=== PATIENT | female | born 1985 | race African-American/Black ===

== ENCOUNTER 2017-02-19 11:34 | Emergency (ER) | payer SELFPAY ==
--- NOTE | 2017-02-19 12:41 | RAD ---
EXAM: LEFT FOOT 3 VIEWS: History Pain and swelling x 1 week. The patient stepped on a rock while walking a week ago. COMPARISON: None. FINDINGS: There is soft tissue swelling. Joint spaces are preserved. Lisfranc alignment is maintained. No f racture. No radiopaque foreign body. IMPRESSION: 1. No radiopaque foreign body. No fracture. 2. Nonspecific soft tissue swelling. POS: [facility]
[2017-02-19 12:59] LABS: #Basophils 0.1 thou/uL (0.0-0.2); #Eosinphils 0.2 thou/uL (0.0-0.7); #Lymphocytes 2.7 thou/uL (1.20-3.40); #Monocytes 0.4 thou/uL (0.11-0.59); %Basophils 1.2 % (0.0-1.0); %Eosinophils 3.6 % (0.0-10.0); %Lymphocytes 42.1 % (21.0-51.0); %Monocytes 6.5 % (0.0-10.0); %Neutrophils 46.6 % (42.0-75.0); Hemoglobin 13.4 g/dL (12.0-16.0); Mean Corpuscular Hemoglobin 27.5 pg (27.0-31.0); Mean Corpuscular Volume 88.7 fl (81.0-99.0); Mean Platelet Volume 7.7 fL (7.4-10.4); Platelet Count 213 thou/uL (130-400); RBC Distribution Width 14.2 % (11.5-14.5); Red Blood Cell (RBC) Count 4.88 mill/uL (4.20-5.40); White Blood Cell (WBC) Count 6.5 thou/uL (4.8-10.8)
[2017-02-19 13:11] LABS: CRP (Inflammatory) 1.55 mg/dL (= or < 0.5)
[2017-02-19 13:17] LABS: ALT (SGPT) 13 U/L (8-55); AST (SGOT) 12 U/L (5-34); Albumin 4.2 g/dL (3.5-5.0); Alkaline Phosphatase 105 U/L (40-150); Anion Gap 13 mmol/L (10-20); BUN (Urea Nitrogen) 13 mg/dL (7.0-18.7); Bilirubin, Total 0.4 mg/dL (0.2-1.2); Calc. Creatinine Clearance 0 mL/min (70-130); Calcium 9.8 mg/dL (7.8-10.44); Carbon Dioxide 25 mmol/L (22-29); Chloride 105 mmol/L (98-107); Estimated GFR-MDRD Greater than 90; Glucose 81 mg/dL (70-105); Potassium 3.7 mmol/L (3.5-5.1); Protein, Total 8.2 g/dL (6.0-8.3); Sodium 139 mmol/L (136-145)
== END 2017-02-19 13:55 | disposition home or self-care (01) ==
LOC: NAV ERS 11:34
DX: M79.672 Pain in left foot (principal)
CPT/HCPCS: 80053; 82550; 85025; 86140

== ENCOUNTER 2017-03-19 08:54 | Emergency (ER) | payer OTHER, SELFPAY ==
[2017-03-19] MEDS ORDERED: Lidocaine 1% 20 ML MDV ONE (09:03)
[2017-03-19] MEDS ORDERED: Sulfameth/Trimethoprim DS 800-160mg TAB ONE (09:26)
[2017-03-19] MEDS ORDERED: Ibuprofen 800 MG TAB ONE (09:29)
== END 2017-03-19 09:42 | disposition home or self-care (01) ==
LOC: NAV ERS 08:54
DX: N76.4 Abscess of vulva (principal)
CPT/HCPCS: 56405; 87070; 87205; J2001

== ENCOUNTER 2017-10-26 13:40 | Emergency (ER) | payer OTHER ==
[2017-10-26] MEDS ORDERED: Ibuprofen 800 MG TAB ONE (14:03)
== END 2017-10-26 15:02 | disposition home or self-care (01) ==
LOC: NAV ERS 13:40
DX: J06.9 Acute upper respiratory infection, unspecified (principal); E66.9 Obesity, unspecified
CPT/HCPCS: 87081; 87430; 99283

== ENCOUNTER 2018-06-22 17:04 | Emergency (ER) | payer OTHER ==
--- NOTE | 2018-06-22 18:18 | RAD ---
CHEST TWO VIEW 06/22/18 HISTORY: Cough. COMPARISON: None. FINDINGS: Exam is limited due to habitus. No focal air space consolidation, pneumothorax or effusion. Cardiac s ilhouette and mediastinal contours are normal. IMPRESSION: No acute intrathoracic abnormality. POS: [facility]
[2018-06-22] MEDS ORDERED: AMOXicillin 250 MG CAP ONE (18:24)
[2018-06-22] MEDS ORDERED: methylPREDNISolone Acetate 40 mg/ml Vial ONE (18:24)
== END 2018-06-22 18:47 | disposition home or self-care (01) ==
LOC: NAV ERS 17:04
DX: J20.9 Acute bronchitis, unspecified (principal); E66.9 Obesity, unspecified
CPT/HCPCS: 71046; 93005; 96372; J1030

== ENCOUNTER 2019-01-08 14:05 | Emergency (ER) | payer OTHER, SELFPAY ==
[~2019-01-08 14:05] MED LIST: Iopamidol 370 76% 100 ML VIAL ONE
[2019-01-08] MEDS ORDERED: Ondansetron PF 4 MG/2 ML Vial ONE ×2 (14:29→15:38)
[2019-01-08 14:39] LABS: Bilirubin Moderate (Negative); Blood, Urine Moderate (Negative); Glucose, Urine (Dipstick) Negative (Negative); Leukocyte Trace (Negative); Nitrite Negative (Negative); Protein, Urine (Dipstick) 100 mg/dL (Neg-Trace); pH, Urine 5.5 (5.0-9.0)
[2019-01-08 14:47] LABS: ALT (SGPT) 35 U/L (8-55); AST (SGOT) 31 U/L (5-34); Albumin 4.8 g/dL (3.5-5.0); Alkaline Phosphatase 70 U/L (40-150); Anion Gap 17 mmol/L (10-20); BUN (Urea Nitrogen) 12 mg/dL (7.0-18.7); Bilirubin, Total 0.5 mg/dL (0.2-1.2); Calc. Creatinine Clearance 0 mL/min (70-130); Calcium 10.1 mg/dL (7.8-10.44); Carbon Dioxide 18 mmol/L (22-29); Chloride 106 mmol/L (98-107); Estimated GFR-MDRD 75; Globulin 4.3 g/dL (2.4-3.5); Glucose 94 mg/dL (70-105); Potassium 3.9 mmol/L (3.5-5.1); Protein, Total 9.1 g/dL (6.0-8.3); Sodium 137 mmol/L (136-145)
[2019-01-08 14:50] LABS: Clarity Hazy (Clear)
[2019-01-08 14:52] LABS: Bacteria/HPF 2+ HPF (None Seen); RBC/HPF 0-3 HPF (0-3); WBC/HPF 0-3 HPF (0-3)
[2019-01-08] MEDS ORDERED: Sodium Chloride 0.9% 2,000 ML ONE (14:58)
[2019-01-08] MEDS ORDERED: cefTRIAXone\\ROCEPHIN 1 GM VIAL ONE (15:02)
[2019-01-08 15:22] LABS: Pregnancy Test - Urine (BHCG) Negative (Negative)
[2019-01-08 15:23] LABS: Pregu Control Background? CLEAR/WHITE (CLR/WHITE); Pregu Control Bar Appear? YES (CONTROL BAR)
[2019-01-08 15:30] LABS: Anisocytosis SLIGHT = 6-15 cells (100X) (0-5/hpf); Band 7 % (5-11); Hemoglobin 15.6 g/dL (12.0-16.0); Lymphocytes 34 % (21-51); MDiff Complete? YES; Mean Corpuscular HGB CONC 30.5 g/dL (32.0-36.0); Mean Corpuscular Hemoglobin 27.5 pg (27.0-31.0); Mean Platelet Volume 8.7 fL (7.4-10.4); Monocytes 20 % (0-10); Neutrophil 34 % (42-75); Platelet Count 213 thou/uL (130-400); Platelet Morphology Comment Appears Adequate; Reactive Lymphocytes 3 % (0-10); Red Blood Cell (RBC) Count 5.67 mill/uL (4.20-5.40); Target Cells SLIGHT = 2-5 cells (100X) (0-1/hpf); White Blood Cell (WBC) Count 5.1 thou/uL (4.8-10.8)
--- NOTE | 2019-01-08 15:54 | CT ---
FContrast-enhanced CT images of abdomen and pelvis. HISTORY: 33-year-old female with history of right lower quadrant pain. Comparison made to previous exam from 06/30/2015. Lung bases are unremarkable. No evidence of free intraperitoneal air seen. The liver, spleen, gallbladder, pancreas, adrenal glands and kidneys are unremarkable. The gastrointe stinal system is difficult to completely assess due to the fact that oral contrast was not given. No definite dilated loops of small bowel seen. The appendix definitively does not visualize. No significant evidence of colonic distention seen. The previously noted nodular uterus has been surgically resected. IMPRESSION: No significant evidence of intra-abdominal or pelvic abnormality seen.
== END 2019-01-08 16:47 | disposition home or self-care (01) ==
LOC: NAV ERS 14:05
DX: E86.0 Dehydration (principal); N39.0 Urinary tract infection, site not specified; R10.31 Right lower quadrant pain
CPT/HCPCS: 74177; 80053; 81003; 81015; 81025; 85025; 87077; 87086; 87186; 96361; 96374; 96375; 96376; J0696; J2270; J2405; J7050; Q9967

== ENCOUNTER 2019-10-11 16:57 | Emergency (ER) | payer SELFPAY ==
[2019-10-11] MEDS ORDERED: Ibuprofen 200 MG TAB ONE (18:22)
== END 2019-10-11 19:03 | disposition home or self-care (01) ==
LOC: NAV ERS 16:57
DX: J02.9 Acute pharyngitis, unspecified (principal)
CPT/HCPCS: 87081; 87430; 99283

== ENCOUNTER 2020-01-24 18:04 | Emergency (ER) | payer SELFPAY ==
[2020-01-24] MEDS ORDERED: Morphine 4 MG/ML VIAL ONE (18:59)
[2020-01-24] MEDS ORDERED: Ondansetron PF 4 MG/2 ML Vial ONE (18:59)
[2020-01-24] MEDS ORDERED: Sodium Chloride 0.9% 1,000 ML ONE (18:59)
[2020-01-24 19:30] LABS: #Basophils 0.1 thou/uL (0.0-0.2); #Eosinphils 0.1 thou/uL (0.0-0.7); #Lymphocytes 2.9 thou/uL (1.20-3.40); #Monocytes 0.4 thou/uL (0.11-0.59); #Neutrophils 2.4 thou/uL (1.40-6.50); %Basophils 1.5 % (0.0-1.0); %Eosinophils 2.3 % (0.0-10.0); %Lymphocytes 48.9 % (21.0-51.0); %Monocytes 6.6 % (0.0-10.0); %Neutrophils 40.8 % (42.0-75.0); Hemoglobin 13.8 g/dL (12.0-16.0); Mean Corpuscular HGB CONC 30.3 g/dL (32.0-36.0); Mean Corpuscular Hemoglobin 28.1 pg (27.0-31.0); Mean Corpuscular Volume 92.6 fL (78.0-98.0); Mean Platelet Volume 8.6 fL (7.4-10.4); Platelet Count 220 thou/uL (130-400); Red Blood Cell (RBC) Count 4.92 mill/uL (4.20-5.40); White Blood Cell (WBC) Count 5.9 thou/uL (4.8-10.8)
[2020-01-24 19:32] LABS: ALT (SGPT) 29 U/L (8-55); AST (SGOT) 22 U/L (5-34); Albumin 4.3 g/dL (3.5-5.0); Alkaline Phosphatase 68 U/L (40-110); Anion Gap 14 mmol/L (10-20); BUN (Urea Nitrogen) 11 mg/dL (7.0-18.7); Bilirubin, Total 0.4 mg/dL (0.2-1.2); Calc. Creatinine Clearance 0 mL/min (70-130); Calcium 9.4 mg/dL (7.8-10.44); Carbon Dioxide 26 mmol/L (22-29); Chloride 106 mmol/L (98-107); Estimated GFR-MDRD Greater than 90; Globulin 3.6 g/dL (2.4-3.5); Glucose 73 mg/dL (70-105); Lipase 18 U/L (8-78); Potassium 3.9 mmol/L (3.5-5.1); Protein, Total 7.9 g/dL (6.0-8.3); Sodium 142 mmol/L (136-145)
[2020-01-24 20:32] LABS: Bilirubin Negative (Negative); Blood, Urine Trace (Negative); Clarity Clear (Clear); Glucose, Urine (Dipstick) Negative (Negative); Leukocyte Trace (Negative); Nitrite Negative (Negative); Protein, Urine (Dipstick) Negative (Neg-Trace); Urobilinogen 0.2 mg/dL (Less than 2)
[2020-01-24 20:38] LABS: Bacteria/HPF Rare-Few HPF (None Seen); RBC/HPF 0-3 HPF (0-3); Squamous Epithelial 0-3 HPF (0-3); Trichomonas/HPF 1+ HPF (None Seen)
[2020-01-24] MEDS ORDERED: metroNIDAZOLE 500 MG TAB ONE (21:20)
[2020-01-24] MEDS ORDERED: Promethazine HCl 25 MG/ML VIAL ONE (21:26)
--- NOTE | 2020-01-24 22:14 | CT ---
CT ABDOMEN AND PELVIS WITH CONTRAST: 01/24/20 HISTORY: Pain. COMPARISON: CT abdomen and pelvis 01/08/19. FINDINGS: Mild area of scar in the right middle lobe. No pericardial effusion. There is high density material within the lumen of the cecum. The appendix is visualized and is lexus l. No hydroureteronephrosis. The spleen is unremarkable. The pancreas is unremarkable. No retroperitonea l periaortic adenopathy. No dilated loops of large or small bowel. No wall thickening. High grade degenerative disc space disease at L5-S1. 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 There is a fat containing supraumbilical incisional hernia. There is also a fat containing umbilical hernia. IMPRESSION: 1. No acute inflammatory process within the abdomen or pelvis. 2. Normal appendix. 3. Small fat containing supraumbilical incisional hernia as well as an umbilical hernia. POS: [facility]
== END 2020-01-24 21:54 | disposition home or self-care (01) ==
LOC: NAV ERS 18:04
DX: A59.9 Trichomoniasis, unspecified (principal); R11.2 Nausea with vomiting, unspecified; K43.2 Incisional hernia without obstruction or gangrene
CPT/HCPCS: 74177; 80053; 81003; 81015; 83690; 85025; 96361; 96374; 96375; J2270; J2405; J2550; J7050; Q9967

== ENCOUNTER 2021-01-20 11:41 | Emergency (ER) | payer OTHER, SELFPAY ==
[2021-01-20] MEDS ORDERED: Ketorolac Tromethamine 60 MG/2 ML VIAL ONE (12:10)
== END 2021-01-20 13:09 | disposition home or self-care (01) ==
LOC: NAV ERS 11:41
DX: M79.672 Pain in left foot (principal); Z87.891 Personal history of nicotine dependence
CPT/HCPCS: 96372; J1885

== ENCOUNTER 2021-01-27 09:09 | Emergency (ER) | payer OTHER ==
[2021-01-27] MEDS ORDERED: Ketorolac Tromethamine 30 MG/ML VIAL ONE (09:34)
[2021-01-27 10:14] LABS: ALT (SGPT) 22 U/L (8-55); AST (SGOT) 22 U/L (5-34); Albumin 4.2 g/dL (3.5-5.0); Alkaline Phosphatase 69 U/L (40-110); Anion Gap 16 mmol/L (10-20); BUN (Urea Nitrogen) 13 mg/dL (7.0-18.7); Bilirubin, Total 0.3 mg/dL (0.2-1.2); CRP (Inflammatory) 2.87 mg/dL (= or < 0.5); Calc. Creatinine Clearance 0 mL/min (70-130); Calcium 8.9 mg/dL (7.8-10.44); Carbon Dioxide 20 mmol/L (22-29); Chloride 107 mmol/L (98-107); Glucose 103 mg/dL (70-105); Potassium 4.1 mmol/L (3.5-5.1); Protein, Total 8.2 g/dL (6.0-8.3); Sodium 139 mmol/L (136-145); Uric Acid 8.6 mg/dL (2.6-6.0)
[2021-01-27 10:19] LABS: Hemoglobin 13.8 g/dL (12.0-16.0); Lymphocytes 36 % (21-51); MDiff Complete? YES; Mean Corpuscular HGB CONC 29.2 g/dL (32.0-36.0); Mean Corpuscular Hemoglobin 27.6 pg (27.0-31.0); Mean Corpuscular Volume 94.6 fL (78.0-98.0); Mean Platelet Volume 8.4 fL (7.4-10.4); Monocytes 5 % (0-10); Neutrophil 59 % (42-75); Platelet Count 249 thou/uL (130-400); Platelet Morphology Comment Appears Adequate; RBC Distribution Width 13.7 % (11.5-14.5); White Blood Cell (WBC) Count 9.3 thou/uL (4.8-10.8)
== END 2021-01-27 10:50 | disposition home or self-care (01) ==
LOC: NAV ERS 09:09
DX: M10.9 Gout, unspecified (principal); Z87.891 Personal history of nicotine dependence
CPT/HCPCS: 80053; 84550; 85025; 86140; 96374; J1885

== ENCOUNTER 2021-10-31 17:21 | Emergency (ER) | payer OTHER ==
[2021-10-31 17:49] LABS: Bilirubin Moderate (Negative); Blood, Urine Small (Negative); Clarity Slightly Cloudy (Clear); Glucose, Urine (Dipstick) Negative (Negative); Ketone, Urine 80 mg/dL (Negative); Leukocyte Negative (Negative); Nitrite Negative (Negative); Protein, Urine (Dipstick) 100 mg/dL (Neg-Trace); pH, Urine 5.5 (5.0-9.0)
[2021-10-31] MEDS ORDERED: Ondansetron PF 4 MG/2 ML Vial ONE (17:57)
[2021-10-31] MEDS ORDERED: Sodium Chloride 0.9% 1,000 ML ONE (17:57)
[2021-10-31 18:04] LABS: Bacteria/HPF 1+ HPF (None Seen); Squamous Epithelial 0-3 HPF (0-3); WBC/HPF 0-3 HPF (0-3)
[2021-10-31 18:28] LABS: #Basophils 0.1 thou/uL (0.0-0.2); #Lymphocytes 2.1 thou/uL (1.20-3.40); #Monocytes 0.4 thou/uL (0.11-0.59); #Neutrophils 1.9 thou/uL (1.40-6.50); %Basophils 1.7 % (0.0-1.0); %Eosinophils 0.1 % (0.0-10.0); %Lymphocytes 47.7 % (21.0-51.0); %Monocytes 7.9 % (0.0-10.0); %Neutrophils 42.6 % (42.0-75.0); Hemoglobin 15.2 g/dL (12.0-16.0); Mean Corpuscular Hemoglobin 28.2 pg (27.0-31.0); Mean Corpuscular Volume 91.1 fL (78.0-98.0); Mean Platelet Volume 7.3 fL (7.4-10.4); Platelet Count 170 thou/uL (130-400); RBC Distribution Width 13.7 % (11.5-14.5); White Blood Cell (WBC) Count 4.4 thou/uL (4.8-10.8)
[2021-10-31 18:39] LABS: ALT (SGPT) 38 U/L (8-55); AST (SGOT) 29 U/L (5-34); Albumin 4.5 g/dL (3.5-5.0); Alkaline Phosphatase 61 U/L (40-110); Anion Gap 17 mmol/L (10-20); BUN (Urea Nitrogen) 16 mg/dL (7.0-18.7); Bilirubin, Total 0.5 mg/dL (0.2-1.2); Calc. Creatinine Clearance 0 mL/min (70-130); Calcium 9.4 mg/dL (7.8-10.44); Carbon Dioxide 25 mmol/L (22-29); Chloride 102 mmol/L (98-107); Globulin 4.2 g/dL (2.4-3.5); Glucose 94 mg/dL (70-105); Lipase 25 U/L (8-78); Potassium 3.6 mmol/L (3.5-5.1); Protein, Total 8.7 g/dL (6.0-8.3); Sodium 140 mmol/L (136-145)
[2021-10-31] MEDS ORDERED: Ondansetron ODT 4 MG TAB ONE (22:00)
[2021-11-01 17:49] LABS: SARS-CoV-2 PCR by NAA DETECTED (NotDetected)
== END 2021-10-31 22:35 | disposition home or self-care (01) ==
LOC: NAV ERS 17:21
DX: U07.1 COVID-19 (principal); R10.13 Epigastric pain; R11.2 Nausea with vomiting, unspecified; K21.9 Gastro-esophageal reflux disease without esophagitis
CPT/HCPCS: 71045; 74176; 80053; 81003; 81015; 83690; 85025; 94760; 96374; J2405; J7050; Q0162; U0003; U0005

== ENCOUNTER 2023-03-26 09:31 | Emergency (ER) | payer OTHER ==
[2023-03-26] MEDS ORDERED: HYDROcodone/Acetaminophen 10/325 mg Tablet ONE (10:08)
== END 2023-03-26 10:10 | disposition home or self-care (01) ==
LOC: NAV ERS 09:31
DX: K08.89 Other specified disorders of teeth and supporting structures (principal); K21.9 Gastro-esophageal reflux disease without esophagitis
CPT/HCPCS: 99282

== ENCOUNTER 2023-07-19 13:27 | Emergency (ER) | payer OTHER ==
[2023-07-19] MEDS ORDERED: Dicyclomine 20 MG TAB ONE (14:05)
[2023-07-19] MEDS ORDERED: Sodium Chloride 0.9% 1,000 ML ONE (14:05)
[2023-07-19] MEDS ORDERED: Ondansetron PF 4 MG/2 ML Vial ONE (14:25)
[2023-07-19 14:30] LABS: #Basophils 0.1 thou/uL (0.0-0.2); #Eosinphils 0.1 thou/uL (0.0-0.7); #Lymphocytes 2.7 thou/uL (1.20-3.40); #Monocytes 0.4 thou/uL (0.11-0.59); #Neutrophils 2.4 thou/uL (1.40-6.50); %Basophils 1.4 % (0.0-1.0); %Eosinophils 2.1 % (0.0-10.0); %Lymphocytes 47.7 % (21.0-51.0); %Monocytes 6.7 % (0.0-10.0); %Neutrophils 42.2 % (42.0-75.0); Hematocrit 45.3 % (36.0-47.0); Hemoglobin 14.1 g/dL (12.0-16.0); Mean Corpuscular HGB CONC 31.2 g/dL (32.0-36.0); Mean Corpuscular Hemoglobin 28.7 pg (27.0-31.0); Mean Corpuscular Volume 91.9 fl (78.0-98.0); Mean Platelet Volume 7.8 fL (7.4-10.4); Platelet Count 243 10x3/uL (130-400); RBC Distribution Width 13.9 % (11.5-14.5); Red Blood Cell (RBC) Count 4.93 mill/uL (4.20-5.40); White Blood Cell (WBC) Count 5.7 10x3/uL (4.8-10.8)
[2023-07-19 14:33] LABS: Bilirubin Negative (Negative); Blood, Urine Trace (Negative); Clarity Clear (Clear); Glucose, Urine (Dipstick) Negative (Negative); Ketone, Urine Negative (Negative); Leukocyte Negative (Negative); Nitrite Negative (Negative); Protein, Urine (Dipstick) Negative (Neg-Trace); Specific Gravity, Urine 1.025 (1.005-1.030); Urobilinogen 0.2 mg/dL (Less than 2); pH, Urine 5.5 (5.0-9.0)
[2023-07-19 14:34] LABS: CAUTI Indications for Culture Pelvic or flank pain
[2023-07-19 14:40] LABS: Bacteria/HPF 1+ HPF (None Seen); RBC/HPF 0-3 HPF (0-3); Squamous Epithelial 0-3 HPF (0-3); WBC/HPF None Seen HPF (0-3)
[2023-07-19 14:41] LABS: ALT (SGPT) 35 U/L (8-55); AST (SGOT) 21 U/L (5-34); Albumin 4.1 g/dL (3.5-5.0); Alkaline Phosphatase 66 U/L (40-110); Anion Gap 14 mmol/L (10-20); BUN (Urea Nitrogen) 12 mg/dL (7.0-18.7); Bilirubin, Total 0.2 mg/dL (0.2-1.2); Calc. Creatinine Clearance 0 mL/min (70-130); Calcium 8.8 mg/dL (7.8-10.44); Carbon Dioxide 22 mmol/L (22-29); Chloride 109 mmol/L (98-107); Estimated GFR 90; Globulin 3.5 g/dL (2.4-3.5); Glucose 91 mg/dL (70-105); Lipase 29 U/L (8-78); Potassium 3.9 mmol/L (3.5-5.1); Protein, Total 7.6 g/dL (6.0-8.3); Sodium 141 mmol/L (136-145)
[2023-07-19 14:41] LABS: Urine Culture Reflex No No
== END 2023-07-19 15:52 | disposition home or self-care (01) ==
LOC: NAV ERS 13:27
DX: A05.9 Bacterial foodborne intoxication, unspecified (principal); B96.89 Other specified bacterial agents as the cause of diseases classified elsewhere; E66.9 Obesity, unspecified
CPT/HCPCS: 36415; 80053; 81001; 83605; 83690; 85025; 96361; 96374; J2405; J7050